=== PATIENT | female | born 1935 | race Caucasian/White ===

== ENCOUNTER → 2022-07-13 11:50 | Outpatient (CLI) | payer MEDICARE, BC, SELFPAY ==
--- NOTE | ~2022-07-13 | XR_ITS ---
EXAMINATION: XR lumbar spine 6V w bending DATE: 07/13/2022 12:15 INDICATION: Low back pain TECHNIQUE: Anteroposterior, lateral in neutral, flexion and extension, and bilateral oblique views of the lumbar spine, and cone-down lateral view of the lumbosacral junction were obtained. COMPARISON: None. FINDINGS: There are 9 mm of anterolisthesis of L4 on L5. No hypermobility is present with flexion or extension. There is vertebroplasty change and a T12 burst fracture. There is an age-indeterminate com pression fracture of L1. There is advanced loss of intervertebral disc space height at L5-S1. There i s mild loss of intervertebral disc space height at L1-2. Severe facet joint osteoarthritis is noted i n the lower lumbar spine. IMPRESSION: 1. Age-indeterminate compression fracture of L1. 2. Severe lumbar spondylosis. Reviewed, dictated and finalized at location B.
== END ==
PROVIDERS: PCP Internal Medicine; Visit Provider Nurse Practitioner Family
DX: M47.816 Spondylosis without myelopathy or radiculopathy, lumbar region (principal); M80.08XA Age-related osteoporosis with current pathological fracture, vertebra(e), initial encounter for fracture
CPT/HCPCS: 72114

== ENCOUNTER → 2022-09-08 14:00 | Outpatient (CLI) | payer MEDICARE, BC, SELFPAY ==
--- NOTE | ~2022-09-08 | XR_ITS ---
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 There is a stable chroni c L1 superior endplate compression fracture. There is accentuated kyphosis at T11-12. There are promi nent marginal osteophytes at multiple thoracic spine levels. Mild dextroscoliosis. No paraspinal soft tissue abnormality. Pedicles intact. There is moderate cervical spondylosis. Impression: 1: No acute abnormality of the thoracic spine. 2: Stable appearance to fractures of T12 and L1 compared with lumbar spine series dated 07/13/2022. Reviewed, dictated and finalized at location [] Impression: 1: No acute abnormality of the thoracic spine. 2: Stable appearance to fractures of T12 and L1 compared with lumbar spine seri es dated 07/13/2022.
== END ==
PROVIDERS: PCP Internal Medicine; Visit Provider Nurse Practitioner Family
DX: M54.16 Radiculopathy, lumbar region (principal)
CPT/HCPCS: 72072

== ENCOUNTER → 2022-09-13 15:26 | Outpatient (CLI) | payer MEDICARE, SELFPAY ==
--- NOTE | ~2022-09-13 | CT_ITS ---
Noncontrast CT scan of the lumbar spine CLINICAL HISTORY: Burst fracture TECHNIQUE: Axial noncontrast imaging of the lumbar spine was performed. Sagittal and coronal reformat cedrick images were constructed. Dose reduction technique was used on this scan by utilizing automated ex posure control and iterative reconstruction technique. The dose-length product (DLP) was 384.71 mGy-c m. Comparison radiographs dated 07/13/2022 FINDINGS: Severe compression fracture of T12 is present, with vertebroplasty cement, essentially stab le from prior radiographs. Moderate compression fracture of L1 is present, also essentially stable fr om prior radiographs. There is retropulsion of the T12 and L1 vertebral bodies. There is 9 mm anterol isthesis of L4 over L5. At T12-L1, there is probable severe canal stenosis due to pronounced retropulsion of the T12 vertebra l body. There is severe bilateral neural foraminal narrowing at this level. At L1-L2, there is much more mild retropulsion. There is mild facet arthropathy. No renny central can al stenosis. There is severe bilateral neural foraminal narrowing, right worse than left. At L2-L3, there is minimal disc bulge. No central canal stenosis or neural foraminal narrowing. At L3-L4, there is minimal disc bulge with moderate facet arthropathy. No central canal stenosis or d efinite neural foraminal narrowing. At L4-L5, there is disc narrowing/bulge with severe facet arthropathy. No renny central canal stenosi s. There is mild to moderate bilateral neural foraminal narrowing. At L5-S1, there is severe degenerative disc narrowing. No central canal stenosis. There is facet arth ropathy with moderate to advanced bilateral neural foraminal narrowing. Paravertebral soft tissues are unremarkable. Large hiatal hernia noted. Impression: Stable compression fractures of T12 and L1, as detailed above. Prior T12 vertebral plasty. 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 Additional moderate degenerative spondylosis of the lumbar spine, as detailed above, worst at L1-L2 a nd L4-L5 and L5-S1. 9 mm anterolisthesis of L4 over L5. Reviewed, dictated and finalized at location M. Impression: Stable compression fractures of T12 and L1, as detailed above. Prior T12 verteb ral plasty. 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 Additional moderate degenerative spondylosis of the lumbar spine, as detailed a arcenio, worst at L1-L2 and L4-L5 and L5-S1. 9 mm anterolisthesis of L4 over L5.
== END ==
PROVIDERS: PCP Neurological Surgery; Visit Provider Neurological Surgery
DX: S22.001A Stable burst fracture of unspecified thoracic vertebra, initial encounter for closed fracture (principal); X58.XXXA Exposure to other specified factors, initial encounter; M47.896 Other spondylosis, lumbar region; M47.897 Other spondylosis, lumbosacral region
CPT/HCPCS: 72131

== ENCOUNTER 2022-10-27 15:57 | Outpatient (CLI) | payer MEDICARE, SELFPAY ==
--- NOTE | ~2022-10-27 | XR_ITS ---
EXAM: XR lumbar spine 2-3V DATE: 10/27/2022 16:35 HISTORY: Wedge compression fracture of unspecified thor, lumbar pain . COMPARISON: None available. FINDINGS: 5 nonrib-bearing lumbar-type vertebral bodies. Pedicles intact. Exaggerated lordosis. Stab le grade 2 anterolisthesis at L4-5. Severe burst fracture at T12 versus vertebral plasty cement, unch anged. Stable moderate compression fracture at L1. Multilevel degenerative disc disease, severe at L1 -L2 and L5-S1. Multilevel severe mid and lower lumbar facet arthropathy with interspinous narrowing. IMPRESSION: No acute fracture or traumatic malalignment detected in the lumbar spine. Reviewed, dictated and finalized at location K.
== END 2022-10-27 15:58 | disposition home or self-care (01) ==
PROVIDERS: PCP Neurological Surgery; Visit Provider Neurological Surgery
DX: S22.000A Wedge compression fracture of unspecified thoracic vertebra, initial encounter for closed fracture (principal); X58.XXXA Exposure to other specified factors, initial encounter
CPT/HCPCS: 72100